=== PATIENT | male | born 1955 | race Asian ===

== ENCOUNTER 2017-12-03 15:39 | Emergency (ER) | payer BC, OTHER ==
[~2017-12-03] VITALS: Ht 170.2 cm; Wt 71.3 kg
[2017-12-03 15:40] VITALS: BP 130/81
[2017-12-03] MEDS ORDERED: KETOROLAC 30 MG/1 ML IM ONE (16:30)
[2017-12-03] MEDS ORDERED: KETOROLAC 30 MG/1 ML ONE (16:44)
== END 2017-12-03 16:54 | disposition home or self-care (01) ==
LOC: ED 16:40
DX: S22.42XA Multiple fractures of ribs, left side, initial encounter for closed fracture (principal); I10 Essential (primary) hypertension; W07.XXXA Fall from chair, initial encounter; Y93.89 Activity, other specified; Y92.89 Other specified places as the place of occurrence of the external cause; Y99.8 Other external cause status
CPT/HCPCS: 71101; 96372; 99284; J1885; 99285